=== PATIENT | male | born 1970 | race African-American/Black ===

== ENCOUNTER 2018-08-20 15:07 | Inpatient (IN) | payer OTHER ==
[~2018-08-20] VITALS: Ht 175.3 cm; Wt 103.8 kg
[2018-08-20 15:09] VITALS: BP 158/99
[2018-08-20 15:21] LABS: ABSOLUTE NEUTROPHILS 6.1 thou/uL (1.4-8.2); BASOPHILS 0.8 % (0.0-2.0); EOSINOPHILS 0.9 % (0.0-3.0); HEMATOCRIT 48.2 % (42.0-52.0); HEMOGLOBIN 16.1 gm/dL (14.0-18.0); LYMPHOCYTES 26.2 % (24.0-44.0); MCH 29.2 pg (26.0-34.0); MCHC 33.4 g/dL (28.0-37.0); MCV 87.5 fL (80.0-100.0); MONOCYTES 7.9 % (1.0-8.0); PLATELET COUNT 162 thou/uL (150-400); POLYS 64.2 % (36.0-66.0); RBC 5.51 mil/uL (4.50-6.00); RDW 14.5 % (10.5-14.5); WBC 9.6 thou/uL (4.0-11.0)
[2018-08-20 15:31] LABS: ANION GAP 8 mmol/L (7-16); BUN 11 mg/dL (7-18); CALCIUM 8.7 mg/dL (8.5-10.1); CHLORIDE 104 mmol/L (98-107); CO2 26 mmol/L (21-32); CREATININE 1.1 mg/dL (0.7-1.3); GLUCOSE 107 mg/dL (74-106); POTASSIUM 4.2 mmol/L (3.5-5.1); SODIUM 138 mmol/L (136-145)
[2018-08-20 15:41] LABS: ALBUMIN 3.6 g/dL (3.4-5.0); SGOT 31 U/L (15-37); SGPT 41 U/L (30-65); TOTAL BILIRUBIN 0.5 mg/dL (<0.1-1.0); TOTAL PROTEIN 7.4 g/dL (6.4-8.2); TROPONIN-I <0.06 ng/mL (<0.06)
--- NOTE | 2018-08-20 17:11 | EKG ---
[facility] [place] [address] ELECTROCARDIOGRAM REPORT Name: JEROEM MULLEN [id number] Admission: 08/20/18 Attend Phys: Discharge: Date of : 66 Report #: [id number] THIS REPORT FOR: //name// [facility] ED Test Date: 2018-08-20 Test Time: 15:08:22 Pat Name: JEROME MULLEN Department: Room: Gender: Order Analyst: ARASH : 1970 Requested By: Erasmo Méndez Order Number: [id number] MD: Hawk Dominique Measurements Intervals Bryant Rate: 106 P: 62 NM: 160 QRS: 4 QRSD: 89 T: 56 QT: 354 QTc: 471 Interpretive Statements Sinus tachycardia Multiple ventricular premature complexes Biatrial enlargement Artifact in lead(s) III,V4,V5 No previous ECG available for comparison Electronically Signed On 08-20-2018 17:11:31 MUSHROOM PACKER by Hawk Dominique [email or web address] <ELECTRONICALLY SIGNED> By: Hawk Dominique MD, [facility] 08/20/18 1711 [id number] [id number] Hawk Dominique MD, FACC /EPI
[2018-08-20 18:56] VITALS: BP 136/88
[2018-08-20 20:03] VITALS: BP 154/104
[2018-08-20 20:20] VITALS: BP 140/76
[2018-08-21] VITALS (8 sets, daily range): BP systolic 101–152; BP diastolic 55–104
[2018-08-21 06:06] LABS: CHOLESTEROL 134 mg/dL (<200); HDL CHOLESTEROL 47 mg/dL (>40); LDL CHOLESTEROL 73 mg/dL (<100); TC:HDL 2.9 Ratio (Not establshd); TRIGLYCERIDE 72 mg/dL (<150); TROPONIN-I <0.06 ng/mL (<0.06); VLDL 14 mg/dL (<40)
[2018-08-21 06:07] LABS: SERUM ASSESSMENT Clear
--- NOTE | 2018-08-21 07:33 | NUR ---
Arrived from ER around 2029 accompanied by . C/o chest pressure he rated as 6/10. He stated it started in the middle of his chest prior to coming to hospital but now it is under both his rib cage and it is constant. Worst with coughing and taking a deep breath and better if he is lying on his side. Tolerated room air well with o2 sat in the upper 90's. He slept some but this am when he woke up he still has the discomfort. Ntg. SL given x2 with some relief and brought the pain down to 2/10 from 6/10. O2 at 2L/NC applied for comfort. Up ad srinivasan in room with steady gait. Cardiology consult called to answering service. SR with PVC's per tele. Will continue to monitor.
--- NOTE | 2018-08-21 09:58 | 2DMMODE ---
[facility] [address] [place] [address] 2 D/M-MODE ECHOCARDIOGRAM Name: JEROME MULLEN Everett Room #: 458-P [facility] .R.#: [id number] Admission: 08/20/18 Attend Phys: Chandni Mcdonald Discharge: Date of : 66 Date of Service: 08/21/18 0957 Report #: [id number] THIS REPORT FOR: //name// APPROVED REPORT Study performed: 08/21/2018 08:17:55 EXAM: Comprehensive 2D, Doppler, and color-flow Echocardiogram Patient Location: Echo lab Room #: [facility] Status: routine BSA: 2.19 HR: 88 bpm BP: 136/92 mmHg Other Information Study Quality: Good Indications Congestive Heart Failure Cardiomyopathy Chest Pain 2D Dimensions RVDd: 42.28 mm IVSd: 9.79 (7-11mm) LVOT Diam: 20.14 (18-24mm) LVDd: 62.06 mm PWd: 11.03 (7-11mm) Ascending Ao: 31.08 (22-36mm) LVDs: 53.02 (25-40mm) Aortic Root: 27.47 mm IVC: 24.00 mm Volumes Left Atrial Volume (Systole) Single Plane 4CH: 86.44 mL Single Plane 2CH: 70.53 mL LA ESV Index: 39.00 mL/m2 Aortic Valve AoV Peak López.: 1.36 m/s AO Peak Gr.: 7.38 mmHg LVOT Max P.31 mmHg LVOT Max V: 1.04 m/s NANCY Vmax: 2.43 cm2 Mitral Valve E/A Ratio: 2.3 MV Decel. Time: 146.50 ms [facility] [address] [place] [address] 2 D/M-MODE ECHOCARDIOGRAM Name: PAZJEROME Everett Room #: 458-P [facility]#: [id number] Admission: 08/20/18 Attend Phys: Chandni Mcdonald Discharge: Date of : 66 Date of Service: 08/21/18 0957 Report #: [id number] MV E Max López.: 1.08 m/s MV A López.: 0.48 m/s MV PHT: 42.48 ms IVRT: 59.98 ms Pulmonary Valve PV Peak López.: 0.90 m/s PV Peak Gr.: 3.21 mmHg Pulmonary Vein P Vein S: 0.37 m/s P Vein A: 0.29 m/s P Vein D: 0.61 m/s P Vein A Dur.: 120.0 msec P Vein S/D Ratio: 0.61 Tricuspid Valve TR Peak López.: 2.77 m/s TR Peak Gr.: 30.72 mmHg PA Pressure: 41.00 mmHg Left Ventricle Left ventricle is dilated. There is global hypokinesis of the left ventricle. There is normal left ventricular wall thickness. Left ventricular systolic function is severely decreased. LVEF is 25-30%. Grade IV - fixed restrictive diastolic dysfunction. Right Ventricle The right ventricle is normal size. The right ventricular systolic function is low normal. Atria Left atrium is dilated. Right atrium is dilated. Aortic Valve The aortic valve is normal in structure. No aortic regurgitation is present. There is no aortic valvular stenosis. Mitral Valve The mitral valve is normal in structure. Mild mitral regurgitation. No evidence of mitral valve stenosis. Tricuspid Valve The tricuspid valve is normal in structure. There is mild tricuspid regurgitation. Estimated PAP 40 mmHg. There is moderate pulmonary hypertension. Pulmonic Valve The pulmonary valve is normal in structure. Trace pulmonic [facility] [address] [place] [address] 2 D/M-MODE ECHOCARDIOGRAM Name: JEROME MULLEN Everett Room #: 458-P [facility] .R.#: [id number] Admission: 08/20/18 Attend Phys: Chandni Mcdonald Discharge: Date of : 66 Date of Service: 08/21/18 0957 Report #: [id number] regurgitation. Great Vessels The aortic root is normal in size. IVC is dilated and collapses >50% with inspiration. Pericardium There is no pericardial effusion. <Conclusion> Left ventricular systolic function is severely decreased. LVEF is 25-30%. Severe diastolic dysfunction Both atria are dilated. The aortic valve is normal in structure. No aortic regurgitation or stenosis The mitral valve is normal in structure. Mild mitral regurgitation. There is mild tricuspid regurgitation. Estimated pulmonary artery pressure of 40 mmHg. There is no pericardial effusion. <ELECTRONICALLY SIGNED> By: Hawk Dominique MD, FACC 08/21/1857 6 6 Hawk Dominique MD, FACC /INF
--- NOTE | 2018-08-21 18:04 | CATHLAB ---
[facility] [address] [place] [address] INVASIVE PROCEDURE REPORT Name: JEROME MULLEN Room #: 217-P [facility] IN M.R.#: [id number] Admission: 08/20/18 Attend Phys: Chandni Mcdonald Discharge: Date of : 66 Date of Service: 08/21/18 180 Report #: [id number] THIS REPORT FOR: //name// APPROVED REPORT Study performed: 08/21/2018 10:38:02 Patient Details Patient Status: In-Patient Room #: 217 The patient is a 48 year-old male Event Personnel Josue Galvan River Expedition Guide, Jessica Burgess RN RN, Debbie Montano RTR, FISH ROE PROCESSOR Monitor, Frantz Bird Scrub Procedures Performed Art Access - R femoral artery* Keagan Access - R femoral vein Right and Left Heart Cath w/or w/o Coronarie [id number] [facility] 01818 Initial Mod Sed Same Phys/QHP Gr5y 208067 Hemostasis with Manual pressure Hemostasis w/ Mynx 41801 Mod Sed Same Phys/QHP Ea 652403 Aortogram Abdominal Peripheral Angio 214814 Indication Chest pain Procedure Narrative The Right Groin^ was infiltrated with subcutaneous anesthesia. A PINNACLE 6FR Sheath #[id number] sheath was inserted into the RFA. Coronary angiography was performed using coronary diagnostic catheters. The right coronary system was accessed and visualized with a JR4 catheter. The left coronary system was accessed and visualized with a JL4 catheter. The left ventricle was accessed and visualized with a Pigtail catheter. Left ventriculogram was performed in 30 degree projection. An aortogram of the abdominal aorta was performed. Closure device was deployed with a 6 Fr Mynx. Hemostasis was obtained with manual pressure following sheath removal without any complications. The patient tolerated the procedure well and there were no complications associated with the procedure. There was no hematoma. Intraoperative Conscious Sedation Sedation start time: 11:22 Case end Time: 11:59 Fentanyl 25 mcg Versed 1 mg [facility] [address] [place] [address] INVASIVE PROCEDURE REPORT Name: JEROME MULLEN Everett Room #: 217-P [facility]#: [id number] Admission: 08/20/18 Attend Phys: Chandni Mcdonald Discharge: Date of : 66 Date of Service: 08/21/18 1804 Report #: [id number] Fluoro Time: 2.10 minutes Dose: DAP 4357.20 cGycm2 423 mGy Contrast Type and Amount: Omnipaque 120 ml Hemodynamics The right atrial mean pressure is 19 mmHg. The right ventricular pressure is 68/12 mmHg. The pulmonary artery pressure is 68/38 mmHg with a mean of 50 mmHg. The mean pulmonary capillary wedge pressure is 34 mmHg. The aortic pressure is 152/89 mmHg with a mean of mmHg. The left ventricular pressure is 134/23 mmHg with a mean of mmHg. The left ventricular end diastolic pressure is 43 mmHg. The cardiac output using thermo method is 3.20 L/min. The cardiac index using thermo method is 1.46 L/min/m2. Conclusion #1 successful right heart catheterization with significant elevations in pulmonary pressures see above hemodynamics #2 mildly dilated left ventricle with mildly severe global hypokinesis EF 25% range moderate mitral regurgitation #3 abdominal aortogram no evidence of aneurysm dual supply to the left kidney single right renal artery widely patent #4 left main large free of disease giving rise to LAD and circumflex #5 LAD with minimal irregularity extends around the apex no occlusive disease #6 circumflex OM with an eccentric 30% proximal and mild OM disease noted nondominant but large in distribution #6 dominant right coronary artery which is moderately diseased in the mid vessel 40 and 50% mid distal lesion long with relatively small PDA preserved disease somewhat of a codominant system) Indications and plan. This is idiopathic in nature the cardiomyopathy. IV Lasix has been administered. Needs aggressive diuresis. No significant coronary artery disease for intervention. Transfer back to CCU in stable condition. Diuresis afterload reduction and some hot tight blood pressure control. Fluid and sodium restriction will continue <ELECTRONICALLY SIGNED> By: Josue Galvan MD, FACC 08/21/181803 03 03 Josue Galvan MD, FACC /INF
--- NOTE | 2018-08-21 18:05 | NUR ---
PATIENT ARRIVED TO UNIT APPROX NOON. DENIES PAIN OR SOA. BEDREST MAINTAINED FOR 3HRS POST CATH PER REPORT. RIGHT GROIN SITE C/D/I, SOME TENDERNESS NOTED, NO S/S OF BLEEDING OBSERVED. PATIENT UP AD MAGGIE AFTER BEDREST. GAIT IS STEADY & BALANCED. DIURESIS CONTINUED THIS SHIFT. PATIENT MAINTAINED FLUID RESTRICTION THIS SHIFT. EDUCATION PROVIDED TO FAMILY & PATIENT ON MODIFIED DIET CHANGES WITH DECREASED SODIUM CONTENT. REPORTS UNDERSTANDING, DENIES FURTHER QUESTIONS AT THIS TIE. PATIENT RIGHT GROIN PAIN MANAGED WITH TYLENOL ORDERED.
--- NOTE | 2018-08-22 01:53 | NUR ---
ASSESSMENT DOCUMENTED.PT RESTING IN NAD.A/OX4. AT BEDSIDE.VSS.S/P CARDIAC JAIMIE,RIGHT GROIN WITH DRESSING,CDI,NO HEMATOMA NOTED.PT DENIES CHEST PAIN.C/O RIGHT GROIN SORENESS,TYLENOL GIVEN PER PT REQUEST.ON NOCTURNAL DESAT STUDY.POSSIBLE DISCHARGE TO HOME TODAY.WILL CONT TO MONITOR PER POC.
[2018-08-22 05:07] LABS: ALBUMIN 3.4 g/dL (3.4-5.0); CALCIUM 8.9 mg/dL (8.5-10.1); CREATININE 1.1 mg/dL (0.7-1.3); PHOSPHORUS 3.9 mg/dL (2.5-4.9)
[2018-08-22 06:09] VITALS: BP 100/58
[2018-08-22 16:00] VITALS: BP 119/81
[2018-08-22 20:43] VITALS: BP 110/74
--- NOTE | 2018-08-23 02:00 | NUR ---
ASSESSMENT DOCUMENTED.PT RESTING IN NAD.S/P CARDIAC CATH W/O INTERVENTIONS.CONTINUES TO DIURESE WITH LASIX IVP.ADEQUATE UO.VSS.POSSIBLE DISCHARGE TODAY TO HOME.PT DENIES ANY NEEDS AT THIS TIME.NO C/O CHEST PAIN.WILL CONT TO MONITOR PER POC.
[2018-08-23 04:06] VITALS: BP 118/77
[2018-08-23 05:37] LABS: CREATININE 1.2 mg/dL (0.7-1.3); POTASSIUM 4.1 mmol/L (3.5-5.1)
[2018-08-23] MEDS ORDERED: DEMADEX20 MG PO (07:47)
[2018-08-23] MEDS ORDERED: COZAAR 50 MG TA50 M1 PO (07:47)
[2018-08-23] MEDS ORDERED: ATORVASTATIN CA40 MG PO (07:47)
[2018-08-23] MEDS ORDERED: CARVEDILOL25 MG PO (07:47)
[2018-08-23 08:00] VITALS: BP 133/87
[2018-08-23 13:19] VITALS: BP 133/87
--- NOTE | 2018-08-23 13:36 | NUR ---
ASSESSMENTS COMPLETED AND DOCUMENTED. NO S/SX OF CARDIAC OR RESP DISTRESS. PT MET WITH CASE MGT AND GIVEN RESOURCES. NO COMPLAINTS VOICED. IV AND TELE REMOVED. DISCHARGE INSTRUCTIONS GIVEN TO PT AND . RX GIVEN.
--- NOTE | 2018-08-23 14:24 | NUR ---
Project Coach visited with the pt and his prior to dc today. The pt currently does not have health insurance. He is considering applying for SSD pending cardiology recommendations. [employer] packet provided. The pt is familiar with [facility] but is now living in [place]. He has been contacted by [facility] and will f/u with them for possible medicaid application. He was provided with script discount cards and is familiar with the [employer] program. He stated understanding of followup care and will establish a pcp at discharge.
== END 2018-08-23 13:38 | disposition home or self-care (01) | DRG 287 ==
LOC: ER 15:07 → 2N 17:24 → EROBS 17:24 → 4W 19:57 → 2N 08-21 10:56
PROVIDERS: Emergency Medicine; Nurse Practitioner; Nurse Practitioner Adult Health; ADMIT Hospitalist
DX: I11.0 Hypertensive heart disease with heart failure (principal); J81.1 Chronic pulmonary edema; J45.909 Unspecified asthma, uncomplicated; I50.43 Acute on chronic combined systolic (congestive) and diastolic (congestive) heart failure; I34.0 Nonrheumatic mitral (valve) insufficiency; I42.8 Other cardiomyopathies; F17.210 Nicotine dependence, cigarettes, uncomplicated; Z82.49 Family history of ischemic heart disease and other diseases of the circulatory system; Z71.6 Tobacco abuse counseling; Z79.82 Long term (current) use of aspirin; Z79.899 Other long term (current) drug therapy
CPT/HCPCS: 10045; 10081